=== PATIENT | female | born 1995 | race Two or more races ===

== ENCOUNTER 2017-12-29 04:27 | Emergency (ER) | payer BC, MEDICAID ==
[~2017-12-29] VITALS: Ht 162.6 cm; Wt 78.0 kg
[2017-12-29 04:59] LABS: Urine Bacteria NONE SEEN /hpf (None Seen); Urine Blood Negative /uL (Negative); Urine Mucus FEW (None Seen); Urine Specific Gravity 1.017 (1.001-1.035); Urine WBC 2 /hpf (0 - 5)
[2017-12-29 05:37] LABS: Basophils # (auto) 0 uL; Basophils % (auto) 0.2 % (0.0-2.0); Eosinophils # (auto) 0 uL; Eosinophils % (auto) 0.4 % (0.0-7.0); Hematocrit 35.8 % (36.0-46.0); Hemoglobin 12.1 g/dL (12.2-16.2); Lymphocytes # (auto) 1.4 uL; Lymphocytes % (auto) 16.5 % (10.0-50.0); Mean Corpuscular Hemoglobin 31.9 pg (28.0-32.0); Mean Corpuscular Hgb Conc. 33.9 g/dL (32.0-36.0); Mean Corpuscular Volume 94.3 fL (80.0-100.0); Monocytes # (auto) 0.7 uL; Monocytes % (auto) 8.4 % (0.0-12.0); Neutrophils # (auto) 6.5 uL; Neutrophils % (auto) 74.5 % (37.0-80.0); Nucleated Red Blood Cells % 0.1 %; Platelet Count (auto) 159 10^3/uL (140-450); Red Cell Distribution Width 13.4 % (11.8-14.3); White Blood Cell 8.8 10^3/uL (4.4-10.8)
[2017-12-29 05:42] LABS: Albumin 2.5 g/dL (3.4-5.0); BUN/Creatinine Ratio 10.6; Calcium 8.4 mg/dL (8.5-10.1); Potassium 3.7 mmol/L (3.5-5.1)
[2017-12-29 05:45] LABS: Bilirubin, Total 0.3 mg/dL (0.2-1.0); Total Protein 6.8 g/dL (6.4-8.2)
[2017-12-29] MEDS ORDERED: SODIUM CHLORIDE 0.9% 1,000 ML IV ONE (12:20)
[2017-12-29] MEDS ORDERED: PROMETHAZINE HCL 25 MG/ML 1ML IV ONE (12:30)
[2017-12-29] MEDS ORDERED: MORPHINE SULFATE 8mg/ml INJ SDV IV ONE (14:00)
[2017-12-29 14:20] VITALS: BP 95/55
[2017-12-29] MEDS ORDERED: IOHEXOL 350 MG/ML 100ML IJ ONE (14:21)
== END 2017-12-29 18:14 | disposition home or self-care (01) ==
LOC: ER 04:27
DX: O26.892 Other specified pregnancy related conditions, second trimester (principal); O21.9 Vomiting of pregnancy, unspecified; R51 Headache; R05 Cough; Z3A.22 22 weeks gestation of pregnancy
CPT/HCPCS: 36415; 71275; 80053; 81001; 81025; 85025; 85379; 96361; 96374; 96375; 99285; J2270; J2550; Q9967